=== PATIENT | male | born 2000 | race Caucasian/White ===

== ENCOUNTER 2022-12-22 15:24 | Emergency (ER) | payer OTHER, SELFPAY ==
--- NOTE | ~2022-12-22 | CT_ITS ---
EXAMINATION: CT brain wo con INDICATION: Head injury COMPARISON: None TECHNIQUE: Standard unenhanced head CT. The dose-length product (DLP) was 605.33 mGy-cm. The mA was a djusted according to patient size. Iterative reconstruction technique was employed. FINDINGS: No intracranial hemorrhage, acute infarction, or abnormal mass lesion. The ventricles are n ormal. No abnormal mass effect or midline shift. The callaway-white matter differentiation is normal. The basal cisterns are patent. The orbits are normal. The paranasal sinuses, mastoids and calvarium are normal. IMPRESSION: 1. No acute intracranial abnormality. Reviewed, dictated and finalized at location L. ER LAP MACHINE TENDER
--- NOTE | ~2022-12-22 | CT_ITS ---
EXAMINATION: CT cervical spine wo con DATE: 12/22/2022 15:59 INDICATION: Head injury, neck pain TECHNIQUE: Computed tomography (CT) of the cervical spine was performed without intravenous contrast. The dose-length product (DLP) was 600.51 mGy-cm. Automated exposure control and iterative reconstruc tion technique were employed. COMPARISON: None FINDINGS: No fracture, dislocation, or subluxation. The vertebral body heights, alignment, and interv ertebral disc spaces are normal. The paravertebral soft tissues are unremarkable. The odontoid proces s is intact. IMPRESSION: 1. No acute osseous abnormality. Reviewed, dictated and finalized at location L. [employer]IC[employer] TECHNOLOGIST
[2022-12-22 15:25] VITALS: BP 157/95; PULSE 87; RESP 18; TEMP 35.8; O2SAT 100
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
[2022-12-22 18:26] VITALS: BP 138/89; PULSE 75; RESP 17; O2SAT 98
== END 2022-12-22 18:27 | disposition home or self-care (01) ==
LOC: ANHED 18:19
PROVIDERS: Emergency Provider Physician Assistant
DX: S13.4XXA Sprain of ligaments of cervical spine, initial encounter (principal); V43.52XA Car driver injured in collision with other type car in traffic accident, initial encounter
CPT/HCPCS: 70450; 72125; 99284

== ENCOUNTER 2023-09-06 19:20 | Emergency (ER) | payer SELFPAY ==
[2023-09-06 19:27] VITALS: BP 136/76; PULSE 89; RESP 16; TEMP 37.2; O2SAT 99
--- NOTE | 2023-09-06 19:32 | ED.URI ---
HPI - URI/Sore Throat General Chief Complaint: Upper Respiratory Infection Stated Complaint: HURTS TO BREATHE/FEVER Time Seen by Provider: 09/06/23 19:54 Source: patient and RN notes reviewed Mode of arrival: ambulatory Limitations: no limitations History of Present Illness HPI Narrative: 22-year-old male presents concern for pain when he breathes in his left posterior and lateral lung area. He reports this has been going on for 3 days. He denies cough, shortness of breath. Denies runny nose, stuffy nose, sore throat. Denies fever, body aches, chills, sweats. He denies rash, bruising on the skin. He is a smoker. He denies any intervention for his symptoms. MD elicited complaint: other (Chest wall pain) Related Data Allergies Allergy/AdvReac Type Severity Reaction Status Date / Time No Known Allergies Allergy Verified 09/06/23 19:42 Review of Systems Review of Systems: CONSTITUTIONAL: Denies malaise, chills, sweats, or fever. EYES: Denies visual changes, redness, or discharge. ENT: Denies rhinorrhea, congestion, sinus pain, otalgia and sore throat. CARDIOVASCULAR: Denies chest pain, palpitations, or edema. RESPIRATORY: Denies cough. Denies dyspnea. Reports chest wall pain with breathing GASTROINTESTINAL: Denies abdominal pain, nausea, vomiting, diarrhea SKIN: Denies rash or itching. MUSCULOSKELETAL: Denies myalgia. NEUROLOGIC: Denies headache. All systems reviewed & are unremarkable except as noted in HPI and below PMFSH Comments At time of signature, agree with nursing past medical, surgical, social and family history. There is no relevant family history pertinent to the presenting complaint Exam Narrative: GENERAL: Well-appearing, well-nourished, and in no acute distress. HEAD: Normocephalic EYES: PERRLA, conjunctivae clear ENT: Nares clear. Mucous membranes moist. TM pearly callaway with sharp light reflex bilaterally; no tragal tenderness. Oropharynx not erythematous without lesions. Tonsils not enlarged and without exudate, no drooling, no hoarseness, no trismus, uvula midline. NECK: Supple. No lymphadenopathy CHEST: Clear to auscultation, breath sounds equal. No wheezing, rhonchi, rales, or stridor. No respiratory distress, speaks in full sentences. HEART: Regular rate and rhythm. No murmur heard. SKIN: Warm, dry, no rash, bruising, redness. NEURO: Alert and oriented x3. PSYCH: Normal mood and affect Course Course Emergency Course: Patient is aware of diagnosis, understands and agrees to treatment plan. Anticipatory guidance given. Patient agrees to follow-up as directed and is aware of reasons to seek care at the emergency department. Portions of this record may have been created with voice recognition software Level of Care: Express Care Visit Vital Signs Vital signs: Vital Signs Temperature 98.9 F 09/06/23 19:27 Pulse Rate 89 09/06/23 19:27 Respiratory Rate 16 09/06/23 19:27 Blood Pressure 136/76 09/06/23 19:27 Pulse Oximetry 99 09/06/23 19:27 Temperature 98.9 F 09/06/23 19:27 Pulse Rate 89 09/06/23 19:27 Respiratory Rate 16 09/06/23 19:27 Blood Pressure 136/76 09/06/23 19:27 Pulse Oximetry 99 09/06/23 19:27 Reviewed. MDM - URI/Sore Throat MDM Narrative Medical decision making narrative: Differential diagnosis considered: Yung virus, strep pharyngitis, allergic rhinitis, upper respiratory tract infection, sinusitis, rhinosinusitis, nasopharyngitis. viral pharyngitis, otitis media, otitis externa, pneumonia, bronchitis, viral cough syndrome, viral syndrome, and influenza. Exam findings show no acute concerns or changes; patient is non-toxic appearing and is in no distress. Patient is appropriate for outpatient treatment and follow-up. Lab Data Attestation: I reviewed the patient's lab results. Critical Care Time Critical Care Time Critical Care Time: No Discharge Plan Discharge Clinical Impression: Chest wall pain Patient Disposition
== END 2023-09-06 20:05 | disposition home or self-care (01) ==
PROVIDERS: Emergency Provider Nurse Practitioner
DX: R07.89 Other chest pain (principal)
CPT/HCPCS: 99213; G0463